=== PATIENT | female | born 1965 | race Asian ===

== ENCOUNTER → 2018-10-17 | Outpatient (CLI) | payer BC | END | disposition home or self-care (01) | LOC: CFH 08:47 | PROVIDERS: ATTEND Obstetrics & Gynecology | DX: Z12.31 Encounter for screening mammogram for malignant neoplasm of breast (principal) | CPT/HCPCS: 77067 ==

== ENCOUNTER 2019-11-06 14:43 | Outpatient (CLI) | payer BC | END 2019-11-06 23:59 | disposition home or self-care (01) | LOC: CFH 14:43 | PROVIDERS: ATTEND Obstetrics & Gynecology | DX: Z12.31 Encounter for screening mammogram for malignant neoplasm of breast (principal); Z96.89 Presence of other specified functional implants | CPT/HCPCS: 77067 ==